=== PATIENT | female | born 1955 | race African-American/Black ===

== ENCOUNTER 2017-05-12 23:11 | Emergency (ER) | payer OTHER ==
[~2017-05-12] VITALS: Ht 170.2 cm; Wt 102.0 kg
[2017-05-13 03:58] VITALS: BP 150/100
== END 2017-05-13 04:17 | disposition home or self-care (01) ==
LOC: EME 23:11
DX: S90.31XA Contusion of right foot, initial encounter (principal); X50.9XXA Other and unspecified overexertion or strenuous movements or postures, initial encounter; Y93.89 Activity, other specified
CPT/HCPCS: 73630; 99281; 99284

== ENCOUNTER 2018-03-12 18:43 | Emergency (ER) | payer OTHER ==
[~2018-03-12] VITALS: Ht 172.7 cm; Wt 96.7 kg
[2018-03-12 18:48] VITALS: BP 135/94
[2018-03-12] MEDS ORDERED: INDOCIN50 MG PO (19:10)
== END 2018-03-12 19:32 | disposition home or self-care (01) ==
LOC: EME 18:43
DX: S46.311A Strain of muscle, fascia and tendon of triceps, right arm, initial encounter (principal); S46.211A Strain of muscle, fascia and tendon of other parts of biceps, right arm, initial encounter; X50.9XXA Other and unspecified overexertion or strenuous movements or postures, initial encounter; Y93.89 Activity, other specified; F17.200 Nicotine dependence, unspecified, uncomplicated
CPT/HCPCS: 99281; 99283